=== PATIENT | female | born 1970 | race Caucasian/White ===

== ENCOUNTER 2023-01-29 03:42 | Emergency (ER) | payer BC, SELFPAY ==
[2023-01-29 03:51] VITALS: BMI 38.7
[2023-01-29 03:58] VITALS: BP 162/99; PULSE 63; RESP 16; TEMP 36.6; O2SAT 98
--- NOTE | 2023-01-29 03:58 | CTR_ITS ---
PROCEDURE INFORMATION: Exam: CTA Head With Contrast, Arteriography Exam date and time: 01/29/2023 4:18 AM Age: 52 years old Clinical indication: Stroke-like symptoms; Headache; Additional info: [place] TECHNIQUE: Imaging protocol: Computed tomographic angiography of the head with contrast. Exam focused on the arteries. 3D rendering (Not supervised by radiologist): MIP and/or 3D reconstructed images were created by the technologist. Radiation optimization: All CT scans at this facility use at least one of these dose optimization techniques: automated exposure control; mA and/or kV adjustment per patient size (includes targeted exams where dose is matched to clinical indication); or iterative reconstruction. Contrast material: OMNI 350; Contrast volume: 80 ml; Contrast route: INTRAVENOUS (IV); REPORTING DATA: Count of CT and Cardiac NM exams in prior 12 months: This patient has received 0 known CTs and 0 known cardiac nuclear medicine studies in the 12 months prior to the current study. COMPARISON: No relevant prior studies available. RADIATION DOSE METRICS: Total DLP (mGy-cm): 1169.87 FINDINGS: ANTERIOR CIRCULATION: Right internal carotid artery: Intracranial segment is patent with no significant stenosis. No aneurysm. Right middle cerebral artery: No occlusion or significant stenosis. No aneurysm. Right anterior cerebral artery: No occlusion or significant stenosis. No aneurysm. Left internal carotid artery: Intracranial segment is patent with no significant stenosis. No aneurysm. Left middle cerebral artery: No occlusion or significant stenosis. No aneurysm. Left anterior cerebral artery: No occlusion or significant stenosis. No aneurysm. POSTERIOR CIRCULATION: Right vertebral artery: No occlusion or significant stenosis. No aneurysm. Left vertebral artery: No occlusion or significant stenosis. No aneurysm. Basilar artery: No occlusion or significant stenosis. No aneurysm. Right posterior cerebral artery: No occlusion or significant stenosis. No aneurysm. Left posterior cerebral artery: No occlusion or significant stenosis. No aneurysm. Brain: There is no evidence of acute intracranial hemorrhage, acute ischemic infarct, acute intra-axial or extra-axial fluid collection, mass effect, or midline shift. Cerebral ventricles: No ventriculomegaly. Bones/joints: No acute fracture. Previous left frontal craniotomy. An old blowout fracture of the left orbit medial wall. Soft tissues: Unremarkable. PROCEDURE INFORMATION: Exam: CTA Neck With Contrast Exam date and time: 01/29/2023 4:18 AM Age: 52 years old Clinical indication: Stroke-like symptoms; Headache; Additional info: [place] TECHNIQUE: Imaging protocol: Computed tomographic angiography of the neck with contrast. Exam focused on the cervical segments of the vasculature. 3D rendering (Not supervised by radiologist): MIP and/or 3D reconstructed images were created by the technologist. Radiation optimization: All CT scans at this facility use at least one of these dose optimization techniques: automated exposure control; mA and/or kV adjustment per patient size (includes targeted exams where dose is matched to clinical indication); or iterative reconstruction. Contrast material: OMNI 350; Contrast volume: 80 ml; Contrast route: INTRAVENOUS (IV); REPORTING DATA: Count of CT and Cardiac NM exams in prior 12 months: This patient has received 0 known CTs and 0 known cardiac nuclear medicine studies in the 12 months prior to the current study. COMPARISON: No relevant prior studies available. RADIATION DOSE METRICS: Total DLP (mGy-cm): 1169.87 FINDINGS: Right common carotid artery: No stenosis. No dissection or occlusion. Right internal carotid artery: No stenosis of the extracranial segment. No dissection or occlusion. Right external carotid artery: No occlusion or stenosis of the origin. Left common carotid artery: No stenosis. No dissection or occlusion. Left internal carotid artery: No stenosis of the extracranial segment. No dissection or occlusion. Left external carotid artery: No occlusion or stenosis of the origin. Right vertebral artery: No stenosis. No dissection or occlusion. Left vertebral artery: No stenosis. No dissection or occlusion. Thyroid: An oval 1 cm hypodense nodule in the left thyroid lobe does not need imaging follow-up. Soft tissues: Normal. No significant soft tissue swelling. Bones/joints: No acute fracture. CT/CT angio headneck* [id number] IMPRESSION: 1. No large intracranial artery aneurysm, stenosis or occlusion. 2. No acute intracranial findings. 3. Previous left frontal craniotomy. 4. An old blowout fracture of the left orbit medial wall. IMPRESSION: No major neck artery stenosis, aneurysm, pseudoaneurysm or occlusion. COMMENTS: Consistent with the [employer]'s Incidental Findings Committee white paper (J Am Jennifer Radiol 2015): In patients aged 35 years and older with an incidental thyroid nodule equal to or greater than 1.[address], MRI or extrathyroidal US, further evaluation with dedicated thyroid US is recommended for patients with normal life expectancy and without comorbidities. For smaller nodules without suspicious features, no further evaluation or follow up is recommended. REFERENCES: NASCET CRITERIA. The degree of stenosis in the cervical segment of the internal carotid artery is based on NASCET criteria. Normal is no stenosis. Mild is less than 50% stenosis. Moderate is 50-69% stenosis. Severe is 70% to 99% stenosis. Total occlusion is no detectable patent lumen.
--- NOTE | 2023-01-29 04:00 | W.ED.HA ---
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 She states that over the last week she started to have neck pain along with headaches that she rates an 8 out of 10. States she had some dizziness as well with quick movements she denies any slurred speech or weakness in her legs or arms. She states the headaches have been consistent for the last week and she started getting concerned that she has had another aneurysm. Denies any vomiting or diarrhea Associated symptoms: Deny chest pain, fever(s), nausea, rash or vomiting Review of Systems Const: Denies: fever(s), chills, body aches or change in appetite Eyes: Denies: blurry vision or eye discomfort ENMT: Denies: throat pain or dental pain Card: Denies: chest pain Resp: Denies: dyspnea GI: Denies: abdominal pain, nausea, vomiting or diarrhea : Denies: dysuria Musc: Denies: neck pain or back pain Skin/Breast: Denies: rash Neuro: Reports: headache(s) Physical Exam Const: COMMON NORMALS: no acute distress, patient oriented x3 and healthy appearing HENMT: COMMON NORMALS: normocephalic and atraumatic HEAD & SCALP: normocephalic and atraumatic Eye: COMMON NORMALS: Equal, round and reactive pupils present and EOMs intact bilaterally PUPIL: Yes Equal, round and reactive pupils present Neck/C-Spine: COMMON NORMALS: full ROM and supple Chest: COMMONS NORMALS: normal inspection of the chest and normal palpation of entire chest wall Resp: COMMON NORMALS: normal respiratory effort, No retractions, No use of accessory muscles and clear to auscultation bilaterally AUSCULTATION: clear to auscultation bilaterally Cardio: COMMON NORMALS: regular rate, regular rhythm and No murmurs present (Cardio) RATE: regular rate RHYTHM: regular rhythm GI: COMMON NORMALS: Normal to inspection, nondistended, normoactive bowel sounds present, Soft to palpation, non-tender and no masses PALPATION: Yes Soft to palpation Extremity: COMMON NORMALS: normal to inspection and full ROM Neuro: COMMON NORMALS: patient oriented x3, moves all extremities and no focal motor deficits Psych: COMMON NORMALS: mental status grossly normal, Normal thought process present and cooperative THOUGHT PROCESS: Normal thought process present Skin: COMMON NORMALS: no rashes or lesions noted and no wounds GENERAL SKIN EXAM: no rashes or lesions noted Course Vital Signs: Vital signs: Vital Signs Temperature 97.9 F 01/29/23 03:58 Pulse Rate 68 01/29/23 04:38 Respiratory Rate 17 01/29/23 04:38 Blood Pressure 161/102 01/29/23 04:38 Pulse Oximetry 97 01/29/23 04:38 Oxygen Delivery Me thod Room Air 01/29/23 04:38 MDM - Headache Medical Decision Making Patient presents with a headache CT angio was normal no signs of AVM or aneurysm her headache is resolved here after Reglan Benadryl. She has no signs of meningitis she is stable for discharge she is to follow-up with her PCP and return if worsening she understands agrees to plan. Medical Records I reviewed the patient's medical records. Lab Data I reviewed the patient's lab results. 01/29/23 04:15 01/29/23 04:15 Radiology Impressions Head/Neck CTA 01/29/23 03:58 IMPRESSION: 1. No large intracranial artery aneurysm, stenosis or occlusion. 2. No acute intracranial findings. 3. Previous left frontal craniotomy. 4. An old blowout fracture of the left orbit medial wall. IMPRESSION: No major neck artery stenosis, aneurysm, pseudoaneurysm or occlusion. COMMENTS: Consistent with the [employer]'s Incidental Findings Committee white paper (J Am Jennifer Radiol 2015): In patients aged 35 years and older with an incidental thyroid nodule equal to or greater than 1.[address], MRI or extrathyroidal US, further evaluation with dedicated thyroid US is recommended for patients with normal life expectancy and without comorbidities. For smaller nodules without suspicious features, no further evaluation or follow up is recommended. REFERENCES: NASCET CRITERIA. The degree of stenosis in the cervical segment of the internal carotid artery is based on NASCET criteria. Normal is no stenosis. Mild is less than 50% stenosis. Moderate is 50-69% stenosis. Severe is 70% to 99% stenosis. Total occlusion is no detectable patent lumen. Laboratory Results WBC 12.06 10^3/uL (3.29-11.43) H 01/29/23 04:15 RBC 5.29 10^6/uL (3.85-5.65) 01/29/23 04:15 Hgb 13.30 g/dL (11.27-16.99) 01/29/23 04:15 Hct 42.9 % (36-47) 01/29/23 04:15 MCV 81.1 fl (85-98) L 01/29/23 04:15 MCH 25.1 pg (27-33) L 01/29/23 04:15 MCHC 31.0 g/dL (30-55) 01/29/23 04:15 RDW 15.5 % (12.1-15.1) H 01/29/23 04:15 Plt Count 377 10^3/cmm (157-399) 01/29/23 04:15 MPV 10.3 fL (7.4-10.4) 01/29/23 04:15 Neut % (Auto) 69.7 % 01/29/23 04:15 Lymph % (Auto) 19.9 % 01/29/23 04:15 [place] % (Auto) 4.6 % 01/29/23 04:15 Eos % (Auto) 3.6 % 01/29/23 04:15 Baso % (Auto) 0.6 % 01/29/23 04:15 Neut # (Auto) 8.41 10^3/uL (1.8-7.7) H 01/29/23 04:15 Lymph # (Auto) 2.4 10^3/uL (0.8-4.8) 01/29/23 04:15 [place] # (Auto) 0.6 10^3/uL (0.2-0.9) 01/29/23 04:15 Eos # (Auto) 0.4 10^3/uL (0.0-0.8) 01/29/23 04:15 Baso # (Auto) 0.1 10^3/uL (0.0-0.1) 01/29/23 04:15 Nucleated RBC % (auto) 0 % 01/29/23 04:15 Nucleated RBCs # 0.0 /100WBC 01/29/23 04:15 Sodium 140 mmol/L (136-145) 01/29/23 04:15 Potassium 4.5 mmol/L (3.5-5.1) 01/29/23 04:15 Chloride 102 mmol/L (98-107) 01/29/23 04:15 Carbon Dioxide 24 mmol/L (22-29) 01/29/23 04:15 Anion Gap 18.5 (5-19) 01/29/23 04:15 BUN 20 mg/dL (6-20) 01/29/23 04:15 Creatinine 0.8 mg/dL (0.5-0.9) 01/29/23 04:15 GFR Calculation 75.3 mL/min (90-130) L 01/29/23 04:15 Glucose 320 mg/dL (65-115) H 01/29/23 04:15 Calculated Osmolality 305 mOsm/kg (285-295) H 01/29/23 04:15 Calcium 10.2 mg/dL (8.5-10.5) 01/29/23 04:15 Total Bilirubin 0.2 mg/dL (0.15-1.2) 01/29/23 04:15 AST 14 U/L (0-32) 01/29/23 04:15 ALT 19 U/L (0-33) 01/29/23 04:15 Alkaline Phosphatase 102 U/L (35-105) 01/29/23 04:15 Total Protein 8.1 g/dL (6.6-8.7) 01/29/23 04:15 Albumin 4.6 g/dL (3.5-5.2) 01/29/23 04:15 Globulin 3.5 g/dL (1.3-4.6) 01/29/23 04:15 All radiology interpretation(s) finalized by discharge Discharge Plan Discharge Patient Disposition: Home Clinical Impression: Headache Condition: Stable Discharge Orders: Discharge ED (Routine); Ordered 01/29/23 Ordered By: Narendra Masterson Discharge Diet: Advance as tolerated Discharge Activity: Resume usual activity Patient Instructions: General Headache (ED) Coding Level of Care Code ED [employer] for J Carlos Horta
[2023-01-29] MEDS: metoclopramide 5 mg/mL SDV 2 mL 10 MG IVP (04:14)
[2023-01-29] MEDS: diphenhydrAMINE 50 mg/mL SDV 1mL IVP (04:14)
[2023-01-29 04:20] LABS: Basophils # 0.1 10^3/uL (0.0-0.1); Basophils % 0.6 %; Eosinophils # 0.4 10^3/uL (0.0-0.8); Eosinophils % 3.6 %; Hematocrit 42.9 % (36-47); Lymphocytes # 2.4 10^3/uL (0.8-4.8); Lymphocytes % 19.9 %; Mean Corpuscular Hemoglobin 25.1 pg (27-33); Mean Corpuscular Volume 81.1 fl (85-98); Mean Platelet Volume 10.3 fL (7.4-10.4); Monocytes # 0.6 10^3/uL (0.2-0.9); Monocytes % 4.6 %; Neutrophils # 8.41 10^3/uL (1.8-7.7); Neutrophils % 69.7 %; Nucleated Red Blood Cells % 0 %; Platelet Count 377 10^3/cmm (157-399); Red Blood Count 5.29 10^6/uL (3.85-5.65); Red Cell Distribution Width 15.5 % (12.1-15.1); White Blood Count 12.06 10^3/uL (3.29-11.43)
[2023-01-29] MEDS: iohexol 350 mg/mL 500 mL Btl (per mL) IV (04:29)
[2023-01-29 04:38] VITALS: BP 161/102; PULSE 68; RESP 17; O2SAT 97
[2023-01-29 04:41] LABS: Alanine Aminotransferase 19 U/L (0-33); Albumin Level 4.6 g/dL (3.5-5.2); Alkaline Phosphatase 102 U/L (35-105); Anion Gap 18.5 (5-19); Aspartate Amino Transferase 14 U/L (0-32); Blood Urea Nitrogen 20 mg/dL (6-20); Calcium 10.2 mg/dL (8.5-10.5); Carbon Dioxide 24 mmol/L (22-29); Chloride 102 mmol/L (98-107); Globulin 3.5 g/dL (1.3-4.6); Glomerular Filtration Rate 75.3 mL/min (90-130); Glucose 320 mg/dL (65-115); Osmolality Calculated 305 mOsm/kg (285-295); Potassium 4.5 mmol/L (3.5-5.1); Sodium 140 mmol/L (136-145); Total Bilirubin 0.2 mg/dL (0.15-1.2); Total Protein 8.1 g/dL (6.6-8.7)
[2023-01-29 05:05] VITALS: BP 162/92; PULSE 63; RESP 18; O2SAT 98
== END 2023-01-29 05:06 | disposition home or self-care (01) ==
PROVIDERS: Emergency Provider Emergency Medicine
DX: R51.9 Headache, unspecified (principal)
CPT/HCPCS: 70496; 70498; 80053; 85025; 96374; 96375; 99285; J1200; J2765; Q9967

== ENCOUNTER → 2024-05-02 09:41 | Outpatient (BNVA) | payer OTHER, SELFPAY | PROVIDERS: PCP Family Medicine; Visit Provider Family Medicine | DX: I10 Essential (primary) hypertension (principal); E11.9 Type 2 diabetes mellitus without complications; K21.9 Gastro-esophageal reflux disease without esophagitis; M17.0 Bilateral primary osteoarthritis of knee | CPT/HCPCS: 80053; 82043; 83036; 84443; 85025 ==

== ENCOUNTER → 2024-05-10 10:59 | Outpatient (BNVA) | payer OTHER, SELFPAY | PROVIDERS: PCP Family Medicine; Visit Provider Family Medicine | DX: R52 Pain, unspecified (principal) | CPT/HCPCS: 87400 ==